=== PATIENT | male | born 1980 | race Caucasian/White ===

== ENCOUNTER 2021-08-17 07:47 | Day surgery (SDC) | payer OTHER ==
[2021-08-17] MEDS ORDERED: LIDOCAINE HCL 2% 100 MG/5 ML IJ ONE (07:48)
[2021-08-17] MEDS ORDERED: Decadron 4 MG INJ IV ONE (07:48)
[2021-08-17] MEDS ORDERED: Lactated Ringers 1,000 ML IV ONE (09:15)
[2021-08-17] MEDS ORDERED: DIPRIVAN 200 MG/20 ML IV ONE ×2 (09:23→09:31)
--- NOTE | 2021-08-17 10:09 | XRAY ---
Indication: Right C2-C5 MBB. Intraoperative fluoroscopy provided for 1 minute 10 seconds. 3 digital spot image submitted for interpretation demonstrate posterior needle tips projecting over the expected right C2-C5 nerve roots. Correlate with intraoperative findings/report. Incidental C4-C6 anterior fusion hardware.
--- NOTE | 2021-08-17 10:11 | XRAY ---
1 minute and 10 seconds fluoroscopy time in surgery for right C2-C5 MBB.
== END 2021-08-17 10:02 | disposition home or self-care (01) ==
LOC: SDC-PAIN 07:47
PROVIDERS: ATTEND Psychiatry & Neurology Pain Medicine
DX: M47.812 Spondylosis without myelopathy or radiculopathy, cervical region (principal); Z79.899 Other long term (current) drug therapy
CPT/HCPCS: 64490; 64491; 64492; 72040; 77002; J1100; J2704

== ENCOUNTER 2021-09-21 07:00 | Day surgery (SDC) | payer OTHER ==
[2021-09-21] MEDS ORDERED: Decadron 4 MG INJ IV ONE (07:01)
[2021-09-21] MEDS ORDERED: BUPIVACAINE 0.5% VIAL IJ ONE (07:01)
[2021-09-21] MEDS ORDERED: Lactated Ringers 1,000 ML IV ONE (08:43)
[2021-09-21] MEDS ORDERED: Versed 2 MG/2 ML Injection ONE ×2 (08:47→08:51)
[2021-09-21] MEDS ORDERED: DIPRIVAN 200 MG/20 ML IV ONE (08:47)
--- NOTE | 2021-09-21 09:56 | XRAY ---
Indication: Right C2-C5 MBB. Intraoperative fluoroscopy provided for 1 minute 1 second. 3 digital spot image submitted for interpretation demonstrates posterior needle tips projecting over the expected right C2-C5 nerve roots. Correlate with intraoperative findings/report. Incidental C4-C6 anterior fusion hardware
--- NOTE | 2021-09-21 10:36 | XRAY ---
1 minute and 1 second fluoroscopy time in surgery for right C2-C5 MBB.
== END 2021-09-21 09:25 | disposition home or self-care (01) ==
LOC: SDC-PAIN 07:00
PROVIDERS: ATTEND Psychiatry & Neurology Pain Medicine
DX: M47.812 Spondylosis without myelopathy or radiculopathy, cervical region (principal); Z79.899 Other long term (current) drug therapy
CPT/HCPCS: 64490; 64491; 64492; 72040; 77002; J1100; J2250; J2704

== ENCOUNTER 2021-10-19 06:59 | Day surgery (SDC) | payer OTHER ==
[2021-10-19] MEDS ORDERED: Xylocaine 1% Vial 30 ML PF IJ ONE (07:00)
[2021-10-19] MEDS ORDERED: Decadron 4 MG INJ IV ONE (07:00)
[2021-10-19] MEDS ORDERED: Marcaine Mpf 0.5% Vial 30 Ml IJ ONE (07:00)
[2021-10-19] MEDS ORDERED: DIPRIVAN 200 MG/20 ML IV ONE ×2 (08:01→08:14)
[2021-10-19] MEDS ORDERED: Versed 2 MG/2 ML Injection ONE ×2 (08:02)
[2021-10-19] MEDS ORDERED: Lactated Ringers 1,000 ML IV ONE (09:29)
--- NOTE | 2021-10-19 09:51 | XRAY ---
Indication: Right C2-C5 RFA. Intraoperative fluoroscopy provided for 39 seconds. 3 digital spot image submitted for interpretation demonstrates posterior needle tips projecting over the expected right C2-C4 nerve roots. Correlate with intraoperative findings/report. Incidental partially visualized mid to lower cervical fusion hardware.
--- NOTE | 2021-10-19 11:34 | XRAY ---
39 seconds of fluoroscopy was used in surgery for a right C2-C5 RFA.
== END 2021-10-19 08:55 | disposition home or self-care (01) ==
LOC: SDC-PAIN 06:59
PROVIDERS: ATTEND Psychiatry & Neurology Pain Medicine
DX: M47.812 Spondylosis without myelopathy or radiculopathy, cervical region (principal); Z79.899 Other long term (current) drug therapy
CPT/HCPCS: 64490; 64491; 72040; 77002; J1100; J2001; J2250; J2704

== ENCOUNTER 2021-11-16 09:01 | Day surgery (SDC) | payer OTHER ==
[2021-11-16] MEDS ORDERED: Decadron 4 MG INJ IV ONE (09:02)
[2021-11-16] MEDS ORDERED: LIDOCAINE HCL 2% 100 MG/5 ML IJ ONE (09:02)
[2021-11-16] MEDS ORDERED: VERSED 5 MG/5 ML ONE (11:07)
[2021-11-16] MEDS ORDERED: Lactated Ringers 1,000 ML IV ONE (11:20)
[2021-11-16] MEDS ORDERED: DIPRIVAN 200 MG/20 ML IV ONE (11:45)
--- NOTE | 2021-11-16 13:19 | XRAY ---
Indication: Left C2-C4 MBB. Intraoperative fluoroscopy provided for 46 seconds. 4 digital spot image submitted for interpretation demonstrates posterior needle tips projecting over the expected left C2-C4 nerve roots. Correlate with intraoperative findings/report.
--- NOTE | 2021-11-16 13:34 | XRAY ---
46 seconds fluoroscopy time in surgery for left C2-C4 MBB.
== END 2021-11-16 12:11 | disposition home or self-care (01) ==
LOC: SDC-PAIN 09:01
PROVIDERS: ATTEND Psychiatry & Neurology Pain Medicine
DX: M47.812 Spondylosis without myelopathy or radiculopathy, cervical region (principal); Z79.899 Other long term (current) drug therapy
CPT/HCPCS: 64490; 64491; 72040; 77002; J1100; J2250; J2704

== ENCOUNTER 2021-11-30 15:37 | Day surgery (SDC) | payer OTHER ==
[2021-11-30] MEDS ORDERED: Versed 2 MG/2 ML Injection ONE (16:25)
[2021-11-30] MEDS ORDERED: Lactated Ringers 1,000 ML IV ONE (16:39)
[2021-11-30] MEDS ORDERED: DIPRIVAN 200 MG/20 ML IV ONE ×2 (17:15→17:36)
== END 2021-11-30 17:53 | disposition home or self-care (01) ==
LOC: SDC-PAIN 15:37
PROVIDERS: ATTEND Psychiatry & Neurology Pain Medicine
DX: M47.812 Spondylosis without myelopathy or radiculopathy, cervical region (principal); Z79.899 Other long term (current) drug therapy
CPT/HCPCS: 01939; 64633; 64634; J2250; J2704

== ENCOUNTER 2021-12-07 14:46 | Day surgery (SDC) | payer OTHER ==
[2021-12-07] MEDS ORDERED: Decadron 4 MG INJ IV ONE (14:47)
[2021-12-07] MEDS ORDERED: Marcaine Mpf 0.5% Vial 30 Ml IJ ONE (14:47)
[2021-12-07] MEDS ORDERED: XYLOCAINE-MPF 1% 5ML SDV IJ ONE (14:47)
[2021-12-07] MEDS ORDERED: Versed 2 MG/2 ML Injection ONE ×2 (17:27→17:32)
[2021-12-07] MEDS ORDERED: Lactated Ringers 1,000 ML IV ONE (17:53)
--- NOTE | 2021-12-07 19:57 | XRAY ---
Indication: Left C2-C4 RFA. Intraoperative fluoroscopy provided for 41 seconds. 2 digital spot image submitted for interpretation demonstrates posterior needle tips projecting over the expected left C2-C4 nerve roots. Correlate with intraoperative findings/report. Incidental partially visualized lower cervical fusion hardware.
--- NOTE | 2021-12-08 09:20 | XRAY ---
41 seconds of fluoroscopy was used in surgery for a left C2-C4 RFA.
== END 2021-12-07 18:05 | disposition home or self-care (01) ==
LOC: SDC-PAIN 14:46
PROVIDERS: ATTEND Psychiatry & Neurology Pain Medicine
DX: M47.812 Spondylosis without myelopathy or radiculopathy, cervical region (principal); Z79.899 Other long term (current) drug therapy
CPT/HCPCS: 01939; 64633; 64634; 72040; 77002; J1100; J2250

== ENCOUNTER 2023-03-28 21:50 | Emergency (ER) | payer OTHER ==
[2023-03-28 21:57] VITALS: RESP 20; TEMP 97.3
[2023-03-28] MEDS ORDERED: TORAdol 30 mg Injection IM ONE (22:32)
[2023-03-28] MEDS ORDERED: TORAdol 30 mg Injection ONE (22:36)
--- NOTE | 2023-03-28 22:43 | ERPHSYRPT ---
- History of Present Illness Time Seen by Provider: 03/28/23 22:20 Source: patient Exam Limitations: no limitations Patient Subjective Stated Complaint: rt neck pain radiating down rt arm Triage Nursing Assessment: pt ambulated into ER without diff, spouse at bedside. Pt c/o rt neck pain that radiates down rt arm X2-3 weeks. Pt has seen pain management, chiropractor, deep tissue massage with very little improvement. Pt's informed me that he was lifting heavy furniture 2-3 weeks ago and she thinks this is what aggravated it. Pt can lift his rt arm up to shoulder level. Physician History: Patient a 43-year-old male presents to our ED for evaluation of right upper trapezius pain that radiates into the right shoulder area x3 weeks. Patient is right-hand dominant. Pain started after moving furniture 3 weeks ago. Patient reports a history of a spinal fusion. Spinal fusion was performed approximately 3 to 4 years ago. No associated numbness tingling or weakness. No blunt trauma. No fever. No headache. Patient saw his pain specialist yesterday. Patient received a steroid injection. Patient currently on gabapentin for this pain as well. Symptoms are moderate in intensity. Pain worse with movement and palpation to the right shoulder girdle particularly the right upper trapezius and supraspinatus musculature. Pain improves with unloading of the shoulder girdle using a vertical force through the elbow. No associated chest pain or shortness of breath. No nausea vomiting or diaphoresis. at bedside. They voiced no other complaints or concerns at this time. Portions of this note were created with voice recognition technology. There may be grammatical, spelling, punctuation or sound alike errors Timing/Duration: week(s) (3 weeks) Severity: moderate Modifying Factors: Improves With: movement (Movement and palpation) Associated Symptoms: denies symptoms Allergies/Adverse Reactions: No Known Drug Allergies Allergy (Verified 03/28/23 22:08) Home Medications: Quetiapine Fumarate 25 mg [Seroquel 25 MG] 100 mg PO DAILY 10/17/14 [History] Gabapentin 600 mg PO BID 03/28/23 [History] Metformin HCl 500 mg [Glucophage 500 MG] 500 mg PO BID 03/28/23 [History] Topiramate 100 mg [Topamax 100 MG] 100 mg PO HS 03/28/23 [History] Hx Tetanus, Diphtheria Vaccination/Date Given: Yes Hx Influenza Vaccination/Date Given: No Hx Pneumococcal Vaccination/Date Given: No Travel Risk - International Travel Have you traveled outside of the country in past 3 weeks: No - Coronavirus Screening Are you exhibiting any of the following symptoms?: No Close contact with a COVID-19 positive Pt in past 14-21 Days: Yes - Vaccine Status Have you recieved a Covid-19 vaccination: Yes [employer]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 - Review of Systems Constitutional: No Symptoms, No Fever, No Chills Eyes: No Symptoms Ears, Nose, & Throat: No Symptoms Respiratory: No Symptoms, No Cough, No Dyspnea Cardiac: No Symptoms, No Chest Pain, No Edema, No Syncope Abdominal/Gastrointestinal: No Symptoms, No Abdominal Pain, No Nausea, No Vomiting, No Diarrhea Genitourinary Symptoms: No Symptoms, No Dysuria Musculoskeletal: No Symptoms, No Back Pain, No Neck Pain Skin: No Symptoms, No Rash Neurological: No Symptoms, No Dizziness, No Focal Weakness, No Sensory Changes Psychological: No Symptoms Endocrine: No Symptoms Hematologic/Lymphatic: No Symptoms Immunological/Allergic: No Symptoms All Other Systems: Reviewed and Negative - Past Medical History Pertinent Past Medical History: No Neurological History: Migraines, Other ENT History: No Pertinent History Cardiac History: High Cholesterol Respiratory History: No Pertinent History Endocrine Medical History: No Pertinent History Musculoskeletal History: Arthritis, Fractures GI Medical History: No Pertinent History History: No Pertinent History Psycho-Social History: Depression Male Reproductive Disorders: No Pertinent History Other Medical History: 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 pre diabetic - Past Surgical History Past Surgical History: Yes Neuro Surgical History: Other Cardiac: No Pertinent History Respiratory: No Pertinent History Gastrointestinal: No Pertinent History Genitourinary: No Pertinent History Musculoskeletal: Orthopedic Surgery Male Surgical History: No Pertinent History Other Surgical History: 2 rt ankle surgeries. 3 level fuse in neck. ablation to c2-c7 - Social History Smoking Status: Current every day smoker How long have you smoked: 20 yrs Exposure to second hand smoke: No Drug Use: none Patient Lives Alone: No - Nursing Vital Signs Nursing Vital Signs: Initial Vital Signs Temperature 97.3 F 03/28/23 21:55 Pulse Rate 100 H 03/28/23 21:55 Respiratory Rate 20 03/28/23 21:55 Blood Pressure 132/91 03/28/23 21:55 O2 Sat by Pulse Oximetry 96 03/28/23 21:55 Pain Scale Pain Intensity 9 - Physical Exam General Appearance: no apparent distress, alert Eye Exam: PERRL/EOMI, eyes nml inspection Ears, Nose, Throat Exam: normal ENT inspection, TMs normal, pharynx normal, moist mucous membranes Neck Exam: normal inspection, non-tender, supple, full range of motion, other (No midline neck pain. Patient has tenderness to the right upper trapezius right supraspinatus. Point palpation to these areas reproduces patient's pain. No midline pain. No brachial plexopathy) Respiratory Exam: normal breath sounds, lungs clear, airway intact, No respiratory distress Cardiovascular Exam: regular rate/rhythm, normal heart sounds, normal peripheral pulses Gastrointestinal/Abdomen Exam: soft, normal bowel sounds, No tenderness, No mass Back Exam: normal inspection, normal range of motion, No CVA tenderness, No vertebral tenderness Extremity Exam: normal inspection, normal range of motion, pelvis stable Neurologic Exam: alert, oriented x 3, cooperative, normal mood/affect, nml cerebellar function, nml station & gait, sensation nml, No motor deficits Skin Exam: normal color, warm, dry, No rash Lymphatic Exam: No adenopathy SpO2 Interpretation: normal SpO2: 96 O2 Delivery: Room Air - Course Nursing assessment & vital signs reviewed: Yes Ordered Tests: Active Orders 24 hr Category Date Time Status Sling Application STAT Care 03/28/23 22:33 Ordered Medication Summary Generic Name Dose Route Start Last Admin Trade Name Jessee PRN Reason Stop Dose Admin Ketorolac Tromethamine 60 mg 03/28/23 22:32 Ketorolac Tromethamine 30 Mg/Ml Inj IM 03/28/23 22:33 STAT ONE - Progress Progress: improved Progress Note: Patient is a 43-year-old male history of cervical spinal fusion presents with a 3-week history of right shoulder pain after moving heavy furniture. Patient has already followed up with his chiropractor as well as his pain specialist. Patient received a steroid injection yesterday. Patient's still in some discomfort. Discomfort appears to be mechanical in nature. Pain significantly improves when unloading the right shoulder girdle. Patient placed in a right upper extremity sling and received a Toradol IM injection. No indication for another steroid injection at this time. Patient referred to Dr. Anton Medina orthopedic spine surgeon in [place] for further evaluation and treatment. Patient may require an MRI on an outpatient basis for further evaluation. No indication for imaging studies at this time. Patient has no midline spine pain. There is no history of trauma. Patient agrees to follow-up with the orthopedic doctor within 48 hours for reevaluation. at bedside. They voiced no other complaints or concerns at this time. Portions of this note were created with voice recognition technology. There may be grammatical, spelling, punctuation or sound alike errors Complexity problem addressed is moderate. No critical care time Complex of data reviewed and analyzed as none. Diagnosis made based on history and physical examination. No specialized testing ordered. Risk of complication and or risk of morbidity/mortality of patient management is moderate. Patient received IM Toradol and a shoulder sling. A prescription for Toradol forwarded to patient's pharmacy. Patient received the referral to Raquel Medina, orthopedic spine surgery in [place] Vital stable. Time spent to discharge patient approximately 15 minutes. Plan of care established for shared decision making. No social determinants of health present to impede follow-up. 03/28/23 22:49 Counseled pt/family regarding: diagnosis, need for follow-up - Departure Departure Disposition: Home Clinical Impression: Cervical radiculopathy, Muscle strain Condition: Stable Critical Care Time: No Referrals: [facility]OSPITAL,'S [Primary Care Provider] - Follow up/PCP as directed JAGDEEP MEDINA [NON-STAFF PHY W/O PRIVILEGES] - Follow up/PCP as directed Additional Instructions: Discharge/Care Plan NELSON WALKER was seen on 03/28/23 in the Emergency Room. The patient was counseled regarding Diagnosis,Lab results, Imaging studies, need for follow up and when to return to the Emergency Room. Prescriptions given: Discharge Note I have spoken with the patient and/or caregivers. I have explained the patient's condition, diagnosis and treatment plan based on the information available to me at this time. I have answered the patient's and/or caregiver's questions and addressed any concerns. The patient and/or caregivers have as good understanding of the patient's diagnosis, condition and treatment plan as can be expected at this point. The vital signs have been stable. The patient's condition is stable and appropriate for discharge from the emergency department. The patient will pursue further outpatient evaluation with the primary care physician or other designated or consulting physician as outlined in the discharge instructions. The patient and/or caregivers are agreeable to this plan of care and follow-up instructions have been explained in detail. The patient and/or caregivers have received these instruction. The patient/and or caregivers are aware that any significant change in condition or worsening of symptoms should prompt an immediate return to this or the closest emergency department or call 911. Prescriptions: Ketorolac Trometh 10 mg Tab [TORAdol 10 MG TABLET] 10 mg PO TID 5 Days #15 tablet
[2023-03-28 22:56] VITALS: BP 119/65; PULSE 83; O2SAT 94
== END 2023-03-28 22:57 | disposition home or self-care (01) ==
LOC: ED 21:50
DX: M54.12 Radiculopathy, cervical region (principal); S46.911A Strain of unspecified muscle, fascia and tendon at shoulder and upper arm level, right arm, initial encounter; X50.0XXA Overexertion from strenuous movement or load, initial encounter; E78.5 Hyperlipidemia, unspecified; Z79.84 Long term (current) use of oral hypoglycemic drugs; Z79.899 Other long term (current) drug therapy; Z72.0 Tobacco use
CPT/HCPCS: 96372; 99283; J1885

== ENCOUNTER 2023-04-18 15:07 | Day surgery (SDC) | payer OTHER ==
[2023-04-18] MEDS ORDERED: Decadron 4 MG INJ IV ONE (15:08)
[2023-04-18] MEDS ORDERED: XYLOCAINE-MPF 1% 5ML SDV IJ ONE (15:08)
[2023-04-18] MEDS ORDERED: Sodium Chloride 0.9(Preservative Free) 10 ML IJ ONE (15:08)
[2023-04-18] MEDS ORDERED: Lactated Ringers 1,000 ML IV ONE (17:56)
--- NOTE | 2023-04-18 20:58 | XRAY ---
Indication: Cervical ALYSSA. Intraoperative fluoroscopy provided for 36 seconds. 5 digital spot images submitted for interpretation demonstrates posterior needle tip projecting posterior to cervical thoracic junction. Small amount of contrast injected for needle tip placement. Correlate with intraoperative findings/report. Incidental lower cervical fusion hardware.
--- NOTE | 2023-04-19 08:46 | XRAY ---
36 seconds of fluoroscopy was used in surgery for a cervical ALYSSA.
== END 2023-04-18 18:53 | disposition home or self-care (01) ==
LOC: SDC-PAIN 15:07
PROVIDERS: ATTEND Psychiatry & Neurology Pain Medicine
DX: M54.12 Radiculopathy, cervical region (principal); E11.9 Type 2 diabetes mellitus without complications
CPT/HCPCS: 62321; 72040; 77003; 82947; J1100; Q9966

== ENCOUNTER 2023-07-03 00:35 | Emergency (ER) | payer OTHER ==
[2023-07-03 00:58] VITALS: TEMP 98.4
[2023-07-03] MEDS ORDERED: TORAdol 30 mg Injection IM ONE (01:12)
[2023-07-03] MEDS ORDERED: Bicillin L-A 1.2 Mu/2ML SYRINGE IM ONE ×2 (01:12→01:17)
[2023-07-03] MEDS ORDERED: TORAdol 30 mg Injection ONE (01:16)
--- NOTE | 2023-07-03 01:20 | ERPHSYRPT ---
- History of Present Illness Source: patient Exam Limitations: no limitations Patient Subjective Stated Complaint: tooth pain to rt lower jaw Triage Nursing Assessment: pt ambulated into ER without diff. Pt c/o tooth ache to rt side. Pt had a crack in the tooth, and he lost the filling on Sunday. Pain has gotten worse but pt's rt side of face has become edematous. Pt is to see dentist today at noon but couldn't handle the pain anymore. Physician History: 43-year-old gentleman with right-sided inferior dental pain and right facial edema x 3 days. Pain is 10 on scale. He has a right inferior first molar that is fractured and is very tender to palpation. He denies fever at this time. Patient has no trismus and has a good airway upon initial presentation. Timing/Duration: gradual onset Severity: severe ENT Location: mouth Prearrival Treatment: no prearrival treatment Modifying Factors: Improves With: other (Worse with) Associated Symptoms: denies symptoms, tooth pain Allergies/Adverse Reactions: No Known Drug Allergies Allergy (Verified 07/03/23 01:04) Home Medications: Quetiapine Fumarate 25 mg [Seroquel 25 MG] 100 mg PO DAILY 10/17/14 [History] Gabapentin 600 mg PO TID 03/28/23 [History] Metformin HCl 500 mg [Glucophage 500 MG] 500 mg PO BID 03/28/23 [History] Topiramate 100 mg [Topamax 100 MG] 100 mg PO HS 03/28/23 [History] Hx Tetanus, Diphtheria Vaccination/Date Given: Yes Hx Influenza Vaccination/Date Given: No Hx Pneumococcal Vaccination/Date Given: No Immunizations Up to Date: No Travel Risk - International Travel Have you traveled outside of the country in past 3 weeks: No - Coronavirus Screening Are you exhibiting any of the following symptoms?: No Close contact with a COVID-19 positive Pt in past 14-21 Days: No - Vaccine Status Have you recieved a Covid-19 vaccination: 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 - Review of Systems Constitutional: No Symptoms Eyes: No Symptoms Ears, Nose, & Throat: No Symptoms, Mouth Pain, Mouth Swelling Respiratory: No Symptoms Cardiac: No Symptoms Abdominal/Gastrointestinal: No Symptoms Genitourinary Symptoms: No Symptoms Musculoskeletal: No Symptoms Skin: No Symptoms Neurological: No Symptoms Psychological: No Symptoms Endocrine: No Symptoms Hematologic/Lymphatic: No Symptoms Immunological/Allergic: No Symptoms - Past Medical History Pertinent Past Medical History: Yes Neurological History: Migraines, Other ENT History: No Pertinent History Cardiac History: High Cholesterol Respiratory History: No Pertinent History Endocrine Medical History: No Pertinent History Musculoskeletal History: Arthritis, Fractures GI Medical History: No Pertinent History History: No Pertinent History Psycho-Social History: Depression Male Reproductive Disorders: No Pertinent History Other Medical History: 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 pre diabetic - Past Surgical History Past Surgical History: Yes Neuro Surgical History: Other Cardiac: No Pertinent History Respiratory: No Pertinent History Gastrointestinal: No Pertinent History Genitourinary: No Pertinent History Musculoskeletal: Orthopedic Surgery Male Surgical History: No Pertinent History Other Surgical History: 2 rt ankle surgeries. 3 level fuse in neck. ablation to c2-c7 - Social History Smoking Status: Current every day smoker How long have you smoked: 30 years Exposure to second hand smoke: No Drug Use: none Patient Lives Alone: No - Nursing Vital Signs Nursing Vital Signs: Initial Vital Signs Temperature 98.4 F 07/03/23 00:56 Pulse Rate 88 07/03/23 00:56 Respiratory Rate 20 07/03/23 00:56 Blood Pressure 168/110 07/03/23 00:56 O2 Sat by Pulse Oximetry 96 07/03/23 00:56 Pain Scale Pain Intensity 8 Hypertensive - Physical Exam General Appearance: no apparent distress Eye Exam: bilateral eye: normal inspection, PERRL, EOMI Ear Exam: bilateral ear: auricle normal, canal normal, TM normal Nasal Exam: normal inspection Throat Exam: dental tenderness (Right inferior first molar fractured with advanced erosions and very tender to palpation/good airway/mild gingival edema/no trismus.) Neck Exam: normal inspection, non-tender, supple, full range of motion, trachea midline Cardiovascular/Respiratory Exam: normal breath sounds, regular rate/rhythm, heart sounds normal Abdominal Exam: non-tender, soft Neurologic Exam: alert, oriented x 3, cooperative, product transfer pumper II-XII nml as tested, normal mood/affect, nml cerebellar function, nml station & gait, sensation nml Skin Exam: normal color, warm, dry SpO2 Interpretation: normal SpO2: 96 O2 Delivery: Room Air - Course Nursing assessment & vital signs reviewed: Yes Ordered Tests: Medication Summary Discontinued Medications Generic Name Dose Route Start Last Admin Trade Name Jessee PRN Reason Stop Dose Admin Hydrocodone Bitart/Acetaminophen 2 tab 07/03/23 01:22 07/03/23 01:25 Hydrocodone/Apap 5/325 1 Tab Tablet PO 07/03/23 01:23 2 tab SENT HOME W/ PATIENT ONE Administration Hydrocodone Bitart/Acetaminophen Confirm 07/03/23 01:24 Hydrocodone/Apap 5/325 1 Tab Tablet Administered 07/03/23 01:25 Dose 2 tab .ROUTE .STK-MED ONE Ketorolac Tromethamine 30 mg 07/03/23 01:12 07/03/23 01:19 Ketorolac Tromethamine 30 Mg/Ml Inj IM 07/03/23 01:13 30 mg STAT ONE Administration Ketorolac Tromethamine Confirm 07/03/23 01:16 Ketorolac Tromethamine 30 Mg/Ml Inj Administered 07/03/23 01:17 Dose 30 mg .ROUTE .STK-MED ONE Penicillin G Benzathine 1.2 mu 07/03/23 01:12 07/03/23 01:21 Penicillin G Benzathine 1.2 Mu/2 Ml Syringe IM 07/03/23 01:13 1.2 mu STAT ONE Administration Penicillin G Benzathine Confirm 07/03/23 01:17 Penicillin G Benzathine 1.2 Mu/2 Ml Syringe Administered 07/03/23 01:18 Dose 1.2 mu IM .STK-MED ONE - Progress Progress: improved Progress Note: 07/03/23 02:48 Nursing note vital signs reviewed. No food or housing insecurity noted. Patient given 30 g IM Toradol 1,200,000 units IM pen G. Take-home pack of Marissa 5 given to patient Patient given prescription for penicillin V 500 g 3 times daily for 1 week and also oral Toradol. Patient vies follow-up with a dentist YADY for right inferior first molar extraction. Patient had a great airway during his entire ER stay. Counseled pt/family regarding: diagnosis, need for follow-up Medical Desision Making - Risk of complications The pt has a mod risk of morbidity or mortality based on: Need for prescription drug management - Departure Departure Disposition: Home Clinical Impression: Abscessed tooth Condition: Stable Critical Care Time: No Referrals: [facility]OSP[facility],'[facility] [Primary Care Provider] - Follow up/PCP as directed Instructions: Tooth Abscess (DC), Tooth Decay, Adult (DC), Dental Pain (DC) Additional Instructions: Follow-up with a dentist soon as possible. Penicillin 3 times a day for 1 week. Toradol as needed for pain. Do not take any other nonsteroidals while taking Toradol. Return to ER for increasing pain or swelling Prescriptions: Penicillin V Potassium 500 mg PO TID #21 tablet Ketorolac Trometh 10 mg Tab [TORAdol 10 MG TABLET] 10 mg PO TID PRN #10 tablet PRN Reason: Pain
[2023-07-03] MEDS ORDERED: NORCO 5/325 MG PO ONE (01:22)
[2023-07-03] MEDS ORDERED: NORCO 5/325 MG ONE (01:24)
[2023-07-03 01:37] VITALS: BP 121/70; PULSE 80; RESP 18
[2023-07-03 02:50] VITALS: O2SAT 96
== END 2023-07-03 01:38 | disposition home or self-care (01) ==
LOC: ED 00:35
DX: K04.7 Periapical abscess without sinus (principal); K08.89 Other specified disorders of teeth and supporting structures; E78.5 Hyperlipidemia, unspecified; Z79.84 Long term (current) use of oral hypoglycemic drugs; Z79.899 Other long term (current) drug therapy; Z72.0 Tobacco use
CPT/HCPCS: 96372; 99283; J0561; J1885; A9270-GY

== ENCOUNTER 2023-11-28 07:57 | Day surgery (SDC) | payer OTHER ==
[2023-11-28] MEDS ORDERED: Versed 2 MG/2 ML Injection ONE ×2 (09:51)
[2023-11-28] MEDS ORDERED: DEXMEDETOMIDINE 80 MCG/20ML-NS IV ONE (10:01)
[2023-11-28] MEDS ORDERED: DIPRIVAN 200 MG/20 ML IV ONE (10:04)
[2023-11-28] MEDS ORDERED: Lactated Ringers 1,000 ML IV ONE (10:05)
--- NOTE | 2023-11-28 13:25 | XRAY ---
One minute and 4 seconds of fluoroscopy was used in surgery for an attempted right C2-C4 RFA. Procedure could not be completed due to patient inability to remain still.
== END 2023-11-28 10:55 | disposition home or self-care (01) ==
LOC: SDC-PAIN 07:57
PROVIDERS: ATTEND Psychiatry & Neurology Pain Medicine
DX: M47.812 Spondylosis without myelopathy or radiculopathy, cervical region (principal); E11.9 Type 2 diabetes mellitus without complications
CPT/HCPCS: 64635; 64636; 77002; 82947; J2250; J2704

== ENCOUNTER 2023-12-05 07:12 | Day surgery (SDC) | payer OTHER ==
[2023-12-05] MEDS ORDERED: LIDOCAINE HCL 1% 50 MG/5 ML VL PF IJ ONE (07:13)
[2023-12-05] MEDS ORDERED: BUPIVACAINE 0.5% VIAL IJ ONE (07:13)
[2023-12-05] MEDS ORDERED: Depo-Medrol 40 MG/ML IM ONE (07:13)
[2023-12-05] MEDS ORDERED: Versed 2 MG/2 ML Injection ONE ×2 (09:08→09:14)
[2023-12-05] MEDS ORDERED: DIPRIVAN 200 MG/20 ML IV ONE (09:10)
[2023-12-05] MEDS ORDERED: Lactated Ringers 1,000 ML IV ONE (09:26)
--- NOTE | 2023-12-05 11:16 | XRAY ---
Indication: Right C2-C5 RFA. Intraoperative fluoroscopy provided for 40 seconds. 9 digital spot image submitted for interpretation demonstrates posterior needle tips projecting over the expected right C2-C5 nerve roots. Correlate with intraoperative findings/report. Incidental incompletely visualized lower cervical fusion hardware
--- NOTE | 2023-12-05 12:25 | XRAY ---
40 seconds of fluoroscopy was used in surgery for a right C2-C5 RFA.
== END 2023-12-05 10:00 | disposition home or self-care (01) ==
LOC: SDC-PAIN 07:12
PROVIDERS: ATTEND Psychiatry & Neurology Pain Medicine
DX: M47.812 Spondylosis without myelopathy or radiculopathy, cervical region (principal); E11.9 Type 2 diabetes mellitus without complications
CPT/HCPCS: 64633; 64634; 72040; 77002; 82947; J2001; J2250; J2704

== ENCOUNTER 2023-12-26 06:50 | Day surgery (SDC) | payer OTHER ==
[2023-12-26] MEDS ORDERED: BUPIVACAINE 0.5% VIAL IJ ONE (06:51)
[2023-12-26] MEDS ORDERED: Decadron 4 MG INJ IV ONE (06:51)
[2023-12-26] MEDS ORDERED: LIDOCAINE HCL 1% 50 MG/5 ML VL PF IJ ONE (06:51)
[2023-12-26] MEDS ORDERED: Versed 2 MG/2 ML Injection ONE ×3 (08:08→08:24)
[2023-12-26] MEDS ORDERED: DEXMEDETOMIDINE 80 MCG/20ML-NS IV ONE (08:15)
[2023-12-26] MEDS ORDERED: DIPRIVAN 200 MG/20 ML IV ONE (08:34)
[2023-12-26] MEDS ORDERED: Lactated Ringers 1,000 ML IV ONE (10:52)
--- NOTE | 2023-12-26 10:58 | XRAY ---
Indication: Left C2-C5 RFA. Intraoperative fluoroscopy provided for 46 seconds. 4 digital spot image submitted for interpretation demonstrates posterior needle tips projecting over the expected left C2-C5 nerve roots. Correlate with intraoperative findings/report. Incidental lower cervical fusion hardware.
--- NOTE | 2023-12-26 11:45 | XRAY ---
46 seconds of fluoroscopy was used in surgery for a left C2-C5 RFA.
== END 2023-12-26 09:27 ==
LOC: SDC-PAIN 06:50
PROVIDERS: ATTEND Psychiatry & Neurology Pain Medicine
DX: M47.812 Spondylosis without myelopathy or radiculopathy, cervical region (principal); E11.9 Type 2 diabetes mellitus without complications
CPT/HCPCS: 64633; 64635; 64636; 72040; 77002; 82947; J1100; J2001; J2250; J2704

== ENCOUNTER 2024-08-06 06:57 | Day surgery (SDC) | payer OTHER ==
[2024-08-06] MEDS ORDERED: LIDOCAINE HCL 1% AMPUL 5 ML IJ ONE (06:58)
[2024-08-06] MEDS ORDERED: Sodium Chloride 0.9(Preservative Free) 10 ML IJ ONE (06:58)
[2024-08-06] MEDS ORDERED: dexAMETHasone sodium phosphate IJ ONE (06:58)
[2024-08-06] MEDS ORDERED: DEXMEDETOMIDINE 80 MCG/20ML-NS IV ONE (08:11)
[2024-08-06] MEDS ORDERED: propofoL IV ONE (08:11)
[2024-08-06] MEDS ORDERED: Versed 2 MG/2 ML Injection ONE (08:11)
--- NOTE | 2024-08-06 09:58 | XRAY ---
Indication: Left L4-S1 transforaminal ALYSSA. Intraoperative fluoroscopy provided for 28 seconds. 4 digital spot images submitted for interpretation demonstrates posterior needle tips projecting over expected left L4 and L5 nerve roots. Small amount of contrast injected for needle tip placement. Correlate with intraoperative findings/report.
--- NOTE | 2024-08-06 09:59 | XRAY ---
Indication: Left piriformis injection. Intraoperative fluoroscopy provided for 23 seconds. Single digital spot image submitted for interpretation demonstrates posterior needle tip projecting over left piriformis. Small amount of contrast injected for needle tip placement. Correlate with intraoperative findings/report.
--- NOTE | 2024-08-06 10:56 | XRAY ---
28 seconds of fluoroscopy was used in surgery for a left L4-S1 transforaminal ALYSSA.
--- NOTE | 2024-08-06 10:56 | XRAY ---
23 seconds of fluoroscopy was used in surgery for a left piriformis injection.
== END 2024-08-06 08:46 | disposition home or self-care (01) ==
LOC: SDC-PAIN 06:57
PROVIDERS: ATTEND Psychiatry & Neurology Pain Medicine
DX: M54.16 Radiculopathy, lumbar region (principal); M79.18 Myalgia, other site; E11.9 Type 2 diabetes mellitus without complications
CPT/HCPCS: 20552; 64483; 64484; 72100; 72170; 77002; 77003; 82947; J1100; J2250; J2704; Q9966

== ENCOUNTER 2024-09-03 06:59 | Day surgery (SDC) | payer OTHER ==
[2024-09-03] MEDS ORDERED: Sodium Chloride 0.9(Preservative Free) 10 ML IJ ONE (07:00)
[2024-09-03] MEDS ORDERED: Depo-Medrol 40 MG/ML IM ONE (07:00)
[2024-09-03] MEDS ORDERED: LIDOCAINE HCL 1% AMPUL 5 ML IJ ONE (07:00)
[2024-09-03] MEDS ORDERED: propofoL IV ONE (08:20)
--- NOTE | 2024-09-03 11:43 | XRAY ---
Indication: Caudal ALYSSA. Intraoperative fluoroscopy provided for 29 seconds. 3 digital spot image submitted for interpretation demonstrate caudal needle tip projecting mid sacrum. Small amount of contrast injected for needle tip placement. Correlate with intraoperative findings/report.
--- NOTE | 2024-09-03 12:55 | XRAY ---
29 seconds of fluoroscopy was used in surgery for a caudal ALYSSA.
== END 2024-09-03 08:57 | disposition home or self-care (01) ==
LOC: SDC-PAIN 06:59
PROVIDERS: ATTEND Psychiatry & Neurology Pain Medicine
DX: M54.16 Radiculopathy, lumbar region (principal); E11.9 Type 2 diabetes mellitus without complications
CPT/HCPCS: 62323; 72220; 82947; J2704; Q9966

== ENCOUNTER 2024-09-22 16:39 | Emergency (ER) | payer OTHER ==
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
[2024-09-22 16:51] VITALS: TEMP 97
[2024-09-22] MEDS ORDERED: Sodium Chloride 0.9% 1000 ML 1,000 ML ONE (17:10)
[2024-09-22] MEDS: Sodium Chloride 0.9% 1000 ML 1,000 ML IV STA (17:11)
[2024-09-22 17:24] LABS: Absolute Neutrophil Ct (ANC) 5.62 x10^3/uL (1.78-5.38); BASOPHIL % 0.6 % (0.2-1.2); Basophil (Absolute #) 0.06 x10^3/uL (0.01-0.08); Eosinophil % 2.5 % (0.8-7.0); Eosinophil (Absolute #) 0.24 x10^3/uL (0.04-0.54); Hematocrit 49.2 % (40.1-51.0); Hemoglobin 17.1 g/dL (13.7-17.5); IMMATURE GRAN # 0.04 x10^3u/L (0.001-0.031); IMMATURE GRAN % 0.4 % (0.001-0.429); Lymphocyte (Absolute #) 2.88 x10^3/uL (1.32-3.57); Lymphocytes % 29.7 % (21.8-53.1); Mean Cell Volume 89.9 fL (79.0-92.2); Mean Corpuscular Hemoglobin 31.3 pg (25.7-32.2); Mean Corpuscular Hgb Concent. 34.8 g/dL (32.3-36.5); Mean Platelet Volume 10.6 fL (9.4-12.4); Monocyte (Absolute #) 0.85 x10^3/uL (0.30-0.82); Monocytes % 8.8 % (5.3-12.2); Platelet Count 161 x10^3/uL (163-337); Red Blood Count 5.47 x10^6/uL (4.63-6.08); Red Cell Distribution Width 13.2 % (11.6-14.4); White Blood Count 9.7 x10^3/uL (4.23-9.07)
[2024-09-22 17:39] LABS: ALBUMIN 4.9 g/dL (3.5-5.0); ANION GAP 16.1 MEQ/L (5-15); BILIRUBIN,TOTAL 0.8 mg/dL (0.2-1.3); Calcium 9.4 mg/dL (8.4-10.2); Creatinine 1 0.87 mg/dL (0.66-1.25); EST GLOMERULAR FILTRATION RATE 110.5 ML/MIN; MAGNESIUM 2.1 mg/dL (1.6-2.3); Total Protein 7.6 g/dL (6.3-8.2)
[2024-09-22 18:07] LABS: Appearance Clear (Clear); Bacteria None Seen /HPF (None Seen); Bilirubin Negative (Negative); Blood Negative (Negative); Epithelial Cells None Seen /HPF (None Seen); Glucose, Urine >=1000 mg/dL (Negative); Hyaline Casts NONE SEEN /LPF (0-2); Ketones Negative (Negative); Leukocyte Esterase Negative (Negative); Nitrite Negative (Negative); Protein,Urine Dip Negative (Negative); RBC 0-2 /HPF (0-5); Specific Gravity 1.025 (1.005-1.030); Urobilinogen 0.2 mg/dL (0.2); WBC 0-2 /HPF (0-5)
[2024-09-22 19:05] VITALS: BP 139/83; PULSE 75; RESP 23; O2SAT 97
== END 2024-09-22 19:15 | disposition home or self-care (01) ==
LOC: ED 16:39
DX: T75.4XXA Electrocution, initial encounter (principal); W86.1XXA Exposure to industrial wiring, appliances and electrical machinery, initial encounter; Y92.148 Other place in prison as the place of occurrence of the external cause; Y99.0 Civilian activity done for income or pay; R11.2 Nausea with vomiting, unspecified; R07.9 Chest pain, unspecified; E78.5 Hyperlipidemia, unspecified; Z79.84 Long term (current) use of oral hypoglycemic drugs; Z79.85 Long-term (current) use of injectable non-insulin antidiabetic drugs; Z79.899 Other long term (current) drug therapy; Z72.0 Tobacco use
CPT/HCPCS: 36415; 80053; 81001; 82550; 83605; 83735; 83874; 84484; 85025; 93005; 93041; 94760; 96360; 99284; 99285

== ENCOUNTER 2024-10-01 09:37 | Day surgery (SDC) | payer OTHER ==
[2024-10-01] MEDS ORDERED: Depo-Medrol 40 MG/ML IM ONE (09:38)
[2024-10-01] MEDS ORDERED: LIDOCAINE HCL 2% 100 MG/5 ML IJ ONE (09:38)
[2024-10-01] MEDS ORDERED: Versed 2 MG/2 ML Injection ONE (11:49)
[2024-10-01] MEDS ORDERED: propofoL IV ONE (11:50)
[2024-10-01] MEDS ORDERED: Lactated Ringers 1,000 ML IV ONE (12:18)
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
--- NOTE | 2024-10-01 15:05 | XRAY ---
20 seconds of fluoroscopy was used in surgery for a bilateral L4-S1 MBB.
== END 2024-10-01 12:20 | disposition home or self-care (01) ==
LOC: SDC-PAIN 09:37
PROVIDERS: ATTEND Psychiatry & Neurology Pain Medicine
DX: M47.817 Spondylosis without myelopathy or radiculopathy, lumbosacral region (principal); E11.9 Type 2 diabetes mellitus without complications
CPT/HCPCS: 64493; 64494; 72020; 82947; J2250; J2704

== ENCOUNTER 2025-01-01 08:00 | Day surgery (SDC) | payer OTHER ==
[2025-01-01] MEDS ORDERED: BUPIVACAINE 0.5% VIAL IJ ONE (08:01)
[2025-01-01] MEDS ORDERED: Depo-Medrol 40 MG/ML IM ONE (08:01)
[2025-01-01] MEDS ORDERED: LIDOCAINE HCL 1% 50 MG/5 ML VL IJ ONE (08:01)
[2025-01-01] MEDS ORDERED: Versed 2 MG/2 ML Injection ONE (09:44)
[2025-01-01] MEDS ORDERED: propofoL IV ONE (09:45)
--- NOTE | 2025-01-01 11:08 | XRAY ---
Indication: Right L4-S1 RFA. Intraoperative fluoroscopy provided for 13 seconds. 4 digital spot image submitted for interpretation demonstrates posterior needle tips projecting over expected right L4-S1 nerve roots. Correlate with intraoperative findings/report.
--- NOTE | 2025-01-01 11:29 | XRAY ---
13 seconds of fluoroscopy was used in surgery for a right L4-S1 RFA.
[2025-01-01] MEDS ORDERED: Lactated Ringers 1,000 ML IV ONE (12:17)
== END 2025-01-01 09:03 | disposition home or self-care (01) ==
LOC: SDC-PAIN 08:00
PROVIDERS: ATTEND Psychiatry & Neurology Pain Medicine
DX: M47.817 Spondylosis without myelopathy or radiculopathy, lumbosacral region (principal); E11.9 Type 2 diabetes mellitus without complications

== ENCOUNTER 2025-03-04 06:55 | Day surgery (SDC) | payer OTHER ==
[2025-03-04] MEDS ORDERED: methylPREDNISolone acetate IM ONE (06:56)
[2025-03-04] MEDS ORDERED: BUPIVACAINE 0.5% VIAL IJ ONE (06:56)
[2025-03-04] MEDS ORDERED: propofoL IV ONE (08:30)
[2025-03-04] MEDS ORDERED: Versed 2 MG/2 ML Injection ONE (08:30)
[2025-03-04] MEDS ORDERED: Lactated Ringers 1,000 ML IV ONE (08:51)
--- NOTE | 2025-03-04 10:29 | XRAY ---
Indication: Bilateral SI joint injection. Intraoperative fluoroscopy provided for 42 seconds. 2 digital spot image submitted for interpretation demonstrates posterior needle tips projecting over expected left and right SI joints. Small amount of contrast injected for needle tip placement. Correlate with intraoperative findings/report.
--- NOTE | 2025-03-04 13:07 | XRAY ---
42 seconds of fluoroscopy were used in surgery for bilateral sacroiliac joint injections.
== END 2025-03-04 09:02 | disposition home or self-care (01) ==
LOC: SDC-PAIN 06:55
PROVIDERS: ATTEND Psychiatry & Neurology Pain Medicine
DX: M46.1 Sacroiliitis, not elsewhere classified (principal); E11.9 Type 2 diabetes mellitus without complications

== ENCOUNTER 2025-04-15 06:54 | Day surgery (SDC) | payer OTHER ==
[2025-04-15] MEDS ORDERED: methylPREDNISolone acetate IM ONE (06:55)
[2025-04-15] MEDS ORDERED: BUPIVACAINE 0.5% VIAL IJ ONE (06:55)
[2025-04-15] MEDS ORDERED: Versed 2 MG/2 ML Injection ONE ×2 (08:51)
[2025-04-15] MEDS ORDERED: propofoL IV ONE (08:53)
--- NOTE | 2025-04-15 10:26 | XRAY ---
Indication: Bilateral SI joint injection. Intraoperative fluoroscopy provided for 25 seconds. 2 digital spot images submitted for interpretation demonstrates posterior needle tips projecting over left and right SI joints. Small amount of contrast injected for needle tip placement. Correlate with intraoperative findings/report.
[2025-04-15] MEDS ORDERED: Lactated Ringers 1,000 ML IV ONE (11:25)
--- NOTE | 2025-04-15 12:00 | XRAY ---
25 seconds of fluoroscopy was used in surgery for a bilateral sacroiliac joint injection.
== END 2025-04-15 09:25 | disposition home or self-care (01) ==
LOC: SDC-PAIN 06:54
PROVIDERS: ATTEND Psychiatry & Neurology Pain Medicine
DX: M46.1 Sacroiliitis, not elsewhere classified (principal); E11.9 Type 2 diabetes mellitus without complications

== ENCOUNTER 2025-05-14 08:42 | Day surgery (SDC) | payer OTHER ==
[2025-05-14] MEDS ORDERED: BUPIVACAINE 0.5% VIAL IJ ONE (08:43)
[2025-05-14] MEDS ORDERED: methylPREDNISolone acetate IM ONE (08:43)
[2025-05-14] MEDS ORDERED: LIDOCAINE HCL 1% 50 MG/5 ML VL IJ ONE (08:43)
[2025-05-14] MEDS ORDERED: Versed 2 MG/2 ML Injection ONE ×2 (10:41→10:51)
[2025-05-14] MEDS ORDERED: propofoL IV ONE ×2 (10:42→11:18)
--- NOTE | 2025-05-14 12:13 | XRAY ---
54 seconds of fluoroscopy was used in surgery for a bilateral sacroiliac joint injection.
--- NOTE | 2025-05-14 12:14 | XRAY ---
Indication: Bilateral SI joint RFA. Intraoperative fluoroscopy provided for 54 seconds. 6 digital spot image submitted for interpretation demonstrates 4 posterior left and 4 posterior needle tips projecting over left and right SI joints. Correlate with intraoperative findings/report.
[2025-05-14] MEDS ORDERED: Lactated Ringers 1,000 ML IV ONE (12:45)
== END 2025-05-14 11:39 | disposition home or self-care (01) ==
LOC: SDC-PAIN 08:42
PROVIDERS: ATTEND Psychiatry & Neurology Pain Medicine
DX: M46.1 Sacroiliitis, not elsewhere classified (principal); E11.9 Type 2 diabetes mellitus without complications